=== PATIENT | male | born 1990 | race Caucasian/White ===

== ENCOUNTER 2017-10-25 10:23 | Emergency (ER) | payer OTHER ==
[~2017-10-25] VITALS: Wt 61.2 kg
[~2017-10-25 10:23] MED LIST: FLEXERIL10 MG PO; FLUOXETINE HYDR20 M1 PO; HYDROXYZINE PAM50 MG PO; IBU-8800 MG PO; MEDROL DOSEPAK4 MG PO; MIRTAZAPINE15 M2 PO; NORCO 5-325 TA1 EACH PO; PENICILLIN-VK500 MG PO; QUETIAPINE FUM100 M3 PO; REXULTI2 MG PO; ULTRAM50 MG PO; VICODIN 5/500 505 MG PO; ZITHROMAX250 MG PO; ZOFRAN ODT4 MG SL
[2017-10-25 10:40] VITALS: BP 109/72
[2017-10-25] MEDS ORDERED: FLONASE ALLERG9.9 ML NAS (11:10)
[2017-10-25] MEDS ORDERED: AMOXICILLIN500 M2 PO (11:10)
== END 2017-10-25 11:08 | disposition home or self-care (01) ==
LOC: ED 10:23
DX: J01.10 Acute frontal sinusitis, unspecified (principal); H92.03 Otalgia, bilateral; J02.9 Acute pharyngitis, unspecified; R05 Cough; F17.200 Nicotine dependence, unspecified, uncomplicated

== ENCOUNTER 2017-12-24 12:23 | Emergency (ER) | payer OTHER ==
[~2017-12-24] VITALS: Wt 63.5 kg
[~2017-12-24 12:23] MED LIST changes: +AMOXICILLIN500 M2 PO; +FLONASE ALLERG9.9 ML NAS
[2017-12-24 12:43] LABS: BASO # 0.2 10*3/uL (0.0-0.1); EOS # 0.1 10*3/uL (0.0-0.4); EOS % 0.9 % (1.0-4.0); HEMATOCRIT 49.1 % (42.0-52.0); HEMOGLOBIN 16.4 g/dl (14.0-18.0); LYMPH # 4.2 10*3/uL (1.3-4.4); LYMPH % 27.3 % (27.0-41.0); MEAN CELL VOLUME 90.1 fl (80.0-94.0); MEAN CORPUSCULAR HGB 30.1 pg (27.0-31.0); MEAN CORPUSCULAR HGB CONC 33.4 g/dl (33.0-37.0); MEAN PLATELET VOLUME 10.3 fl (9.6-12.3); MONO % 6.4 % (3.0-9.0); NEUT # 9.7 10*3/uL (2.3-7.9); NEUT % 63.8 % (47.0-73.0); PLATELET COUNT AUTOMATED 237 10*3/uL (130-400); RED BLOOD COUNT 5.45 10*6/uL (4.50-5.90); RED CELL DISTRI WIDTH 13.4 % (0-14.5); WHITE BLOOD COUNT 15.2 10*3/uL (4.8-10.8)
[2017-12-24 13:00] LABS: ALBUMIN 5.1 gm/dl (3.1-4.5); ALKALINE PHOSPHATASE 76 U/L (45-117); BUN 14 mg/dl (7-24); CHLORIDE 103 mmol/L (98-107); POTASSIUM 3.4 mmol/L (3.5-5.1); SGOT/AST 26 IU/L (3-35); SGPT/ALT 35 U/L (12-78); SODIUM 142 mmol/L (136-145)
[2017-12-24] MEDS ORDERED: ZOFRAN ODT4 MG SL (15:09)
[2017-12-24 15:17] VITALS: BP 110/66
== END 2017-12-24 15:20 | disposition home or self-care (01) ==
LOC: ED 12:23
PROVIDERS: Nurse Practitioner Family
DX: K29.70 Gastritis, unspecified, without bleeding (principal); Z79.899 Other long term (current) drug therapy

== ENCOUNTER 2019-08-31 13:57 | Emergency (ER) | payer SELFPAY ==
[~2019-08-31] VITALS: Wt 65.8 kg
[~2019-08-31 13:57] MED LIST changes: +CLINDAMYCIN HC300 MG PO
[2019-08-31 13:58] VITALS: BP 120/75
[2019-08-31] MEDS ORDERED: PENICILLIN VK500 MG PO (15:50)
== END 2019-08-31 15:45 | disposition home or self-care (01) ==
LOC: ED 13:57
DX: S02.5XXA Fracture of tooth (traumatic), initial encounter for closed fracture (principal); B34.9 Viral infection, unspecified; K02.9 Dental caries, unspecified; R11.2 Nausea with vomiting, unspecified; X58.XXXA Exposure to other specified factors, initial encounter; Y93.89 Activity, other specified; Y92.89 Other specified places as the place of occurrence of the external cause; Y99.8 Other external cause status

== ENCOUNTER 2020-02-26 08:03 | Emergency (ER) | payer MEDICAID ==
[~2020-02-26] VITALS: Ht 182.8 cm; Wt 65.8 kg
[~2020-02-26 08:03] MED LIST changes: +PENICILLIN VK500 MG PO
[2020-02-26 08:08] VITALS: BP 124/73
[2020-02-26] MEDS ORDERED: AMOXICILLIN500 M2 PO (08:24)
[2020-02-26] MEDS ORDERED: VICO10300 PO (08:27)
== END 2020-02-26 08:36 | disposition home or self-care (01) ==
LOC: ED 08:03
DX: K02.9 Dental caries, unspecified (principal); F17.200 Nicotine dependence, unspecified, uncomplicated; Z79.899 Other long term (current) drug therapy

== ENCOUNTER 2020-03-30 17:37 | Emergency (ER) | payer OTHER, MEDICAID ==
[~2020-03-30] VITALS: Ht 182.8 cm; Wt 64.4 kg
[~2020-03-30 17:37] MED LIST changes: +VICO10300 PO
[2020-03-30 17:48] VITALS: BP 115/75
--- NOTE | 2020-04-02 15:26 | NUR ---
Notified patient of negative test results, novel coronavirus. Understanding verbalized. Did not seek written documentation at this time for employment. Patient to call back if employer requests.
--- NOTE | 2020-04-02 15:33 | NUR ---
Patient called back with letter request, faxed as requested by patient.
== END 2020-03-30 18:42 | disposition home or self-care (01) ==
LOC: ED 17:37
DX: B34.9 Viral infection, unspecified (principal); R68.89 Other general symptoms and signs; F17.200 Nicotine dependence, unspecified, uncomplicated; Z79.899 Other long term (current) drug therapy

== ENCOUNTER 2020-09-03 15:09 | Emergency (ER) | payer OTHER ==
[~2020-09-03] VITALS: Ht 182.8 cm; Wt 65.8 kg
[2020-09-03 15:24] VITALS: BP 105/68
[2020-09-03] MEDS ORDERED: ZOFRAN4 MG PO (15:35)
[2020-09-03] MEDS ORDERED: TESSALON PERLE100 MG PO (15:35)
== END 2020-09-03 15:54 | disposition home or self-care (01) ==
LOC: ED 15:09
DX: J06.9 Acute upper respiratory infection, unspecified (principal); Z20.828 Contact with and (suspected) exposure to other viral communicable diseases

== ENCOUNTER 2020-12-08 08:19 | Emergency (ER) | payer OTHER ==
[~2020-12-08] VITALS: Wt 65.8 kg
[~2020-12-08 08:19] MED LIST changes: +TESSALON PERLE100 MG PO; +ZOFRAN4 MG PO
[2020-12-08 08:29] VITALS: BP 117/65
[2020-12-08] MEDS ORDERED: ZOFRAN4 MG PO (09:23)
[2020-12-08] MEDS ORDERED: TESSALON PERLE100 MG PO (09:23)
== END 2020-12-08 09:38 | disposition home or self-care (01) ==
LOC: ED 08:19
DX: J06.9 Acute upper respiratory infection, unspecified (principal); R11.10 Vomiting, unspecified; R05 Cough; F17.200 Nicotine dependence, unspecified, uncomplicated; Z20.822 Contact with and (suspected) exposure to COVID-19

== ENCOUNTER 2021-01-01 16:08 | Inpatient (IN) | payer OTHER ==
[~2021-01-01] VITALS: Ht 182.8 cm; Wt 65.8 kg
[2021-01-01 17:04] VITALS: BP 124/87
[2021-01-01 18:02] LABS: BILIRUBIN Negative (Negative); BLOOD Negative (Negative); CLARITY Clear (Clear); COLOR Yellow (Yellow); GLUCOSE Negative (Negative); KETONE Trace (Negative); LEUKO ESTERASE Negative (Negative); NITRITE Negative (Negative); SPECIFIC GRAVITY 1.025 (1.001-1.030)
[2021-01-01 18:11] LABS: URINE AMPHETAMINES < 1000 (1000ng/ml); URINE BARBITURATES < 200 (200ng/ml); URINE BENZODIAZEPINES < 200 (200ng/ml); URINE CANNABINOIDS (THC) > 50 (50ng/ml); URINE COCAINE < 300 (300ng/ml); URINE METHADONE < 300 (300ng/ml); URINE OPIATES < 300 (300ng/ml)
[2021-01-01 18:15] LABS: BACTERIA 1+; EPITHELIAL CELLS 0-2; MUCOUS 1+; RBC 0-2 rbc/hpf (0-2); TRIP PHOS CRYSTALS TR
[2021-01-01 18:17] LABS: URINE PHENCYCLIDINE < 25 (25ng/ml)
[2021-01-01 18:47] LABS: BASO # 0.1 10*3/uL (0.0-0.1); EOS # 0.4 10*3/uL (0.0-0.4); EOS % 4.1 % (1.0-4.0); HEMATOCRIT 39.8 % (42.0-52.0); LYMPH # 2.3 10*3/uL (1.3-4.4); LYMPH % 22.3 % (27.0-41.0); MEAN CELL VOLUME 82.1 fl (80.0-94.0); MEAN CORPUSCULAR HGB 25.6 pg (27.0-31.0); MEAN CORPUSCULAR HGB CONC 31.2 g/dl (33.0-37.0); MEAN PLATELET VOLUME 10.1 fl (9.6-12.3); MONO # 0.8 10*3/uL (0.1-1.0); MONO % 7.5 % (3.0-9.0); NEUT # 6.7 10*3/uL (2.3-7.9); NEUT % 64.9 % (47.0-73.0); PLATELET COUNT AUTOMATED 270 10*3/uL (130-400); RED BLOOD COUNT 4.85 10*6/uL (4.50-5.90); RED CELL DISTRI WIDTH 17.1 % (0-14.5); WHITE BLOOD COUNT 10.4 10*3/uL (4.8-10.8)
[2021-01-01 18:54] VITALS: BP 128/80
[2021-01-01 19:01] LABS: ALBUMIN 3.6 gm/dl (3.1-4.5); ALKALINE PHOSPHATASE 91 U/L (45-117); BUN 10 mg/dl (7-24); CHLORIDE 106 mmol/L (98-107); CREATININE 0.79 mg/dL (0.70-1.30); POTASSIUM 3.6 mmol/L (3.5-5.1); SGOT/AST 12 IU/L (3-35); SGPT/ALT 19 U/L (12-78); SODIUM 140 mmol/L (136-145); TOTAL PROTEIN 6.8 gm/dL (6.4-8.2)
[2021-01-01 19:03] LABS: ETHYL ALCOHOL < 3.0 mg/dl (<3)
[2021-01-01 20:45] VITALS: BP 135/80
[2021-01-02 08:00] VITALS: BP 121/84
[2021-01-02 12:00] VITALS: BP 115/73
[2021-01-02 16:00] VITALS: BP 121/75
[2021-01-02 20:00] VITALS: BP 104/74
[2021-01-03] VITALS: BP 116/68
[2021-01-03 08:00] VITALS: BP 111/66
[2021-01-03 16:00] VITALS: BP 121/78
[2021-01-03 20:00] VITALS: BP 120/75
[2021-01-04 08:05] VITALS: BP 110/72
== END 2021-01-04 11:58 | disposition home or self-care (01) | DRG 897 ==
LOC: ED 16:08 → 5E 18:00 → EDHOLD 18:00 → 5E 19:34
PROVIDERS: Physician Assistant; Student in an Organized Health Care Education/Training Program; ADMIT Emergency Medicine; ATTEND Emergency Medicine
DX: F11.13 Opioid abuse with withdrawal (principal); F33.1 Major depressive disorder, recurrent, moderate; F12.10 Cannabis abuse, uncomplicated; F17.210 Nicotine dependence, cigarettes, uncomplicated

== ENCOUNTER 2021-01-06 23:59 | Emergency (ER) | payer OTHER ==
[~2021-01-06] VITALS: Ht 182.8 cm; Wt 65.8 kg
[2021-01-07 02:45] VITALS: BP 116/70
== END 2021-01-07 03:07 | disposition home or self-care (01) ==
LOC: ED 23:59
DX: I95.1 Orthostatic hypotension (principal); Z98.890 Other specified postprocedural states

== ENCOUNTER 2021-01-21 00:10 | Emergency (ER) | payer OTHER ==
[~2021-01-21] VITALS: Ht 182.8 cm; Wt 68.0 kg
[2021-01-21 00:16] VITALS: BP 118/75
[2021-01-21] MEDS ORDERED: PENICILLIN VK500 MG PO (00:25)
== END 2021-01-21 00:35 | disposition home or self-care (01) ==
LOC: ED 00:10
DX: K08.89 Other specified disorders of teeth and supporting structures (principal); F17.200 Nicotine dependence, unspecified, uncomplicated

== ENCOUNTER 2021-03-15 23:04 | Emergency (ER) | payer OTHER ==
[~2021-03-15] VITALS: Ht 182.8 cm; Wt 69.4 kg
[2021-03-15 23:12] VITALS: BP 154/47
[2021-03-15] MEDS ORDERED: AMOXICILLIN500 M2 PO ×2 (23:17)
== END 2021-03-15 23:37 | disposition home or self-care (01) ==
LOC: ED 23:04
DX: K08.89 Other specified disorders of teeth and supporting structures (principal); F17.200 Nicotine dependence, unspecified, uncomplicated; Z79.2 Long term (current) use of antibiotics; Z98.890 Other specified postprocedural states

== ENCOUNTER 2021-03-31 22:12 | Emergency (ER) | payer OTHER ==
[~2021-03-31] VITALS: Ht 182.8 cm; Wt 63.5 kg
[2021-03-31 22:24] VITALS: BP 123/73
[2021-03-31 23:02] LABS: BASO # 0.1 10*3/uL (0.0-0.1); BASO % 0.6 % (0.0-1.0); EOS # 0.2 10*3/uL (0.0-0.4); EOS % 2.4 % (1.0-4.0); HEMATOCRIT 37.6 % (42.0-52.0); LYMPH # 2.7 10*3/uL (1.3-4.4); LYMPH % 31.5 % (27.0-41.0); MEAN CELL VOLUME 82.8 fl (80.0-94.0); MEAN CORPUSCULAR HGB 26.7 pg (27.0-31.0); MEAN CORPUSCULAR HGB CONC 32.2 g/dl (33.0-37.0); MEAN PLATELET VOLUME 10.5 fl (9.6-12.3); MONO # 0.8 10*3/uL (0.1-1.0); MONO % 9.2 % (3.0-9.0); NEUT # 4.8 10*3/uL (2.3-7.9); NEUT % 56.2 % (47.0-73.0); PLATELET COUNT AUTOMATED 223 10*3/uL (130-400); RED BLOOD COUNT 4.54 10*6/uL (4.50-5.90); RED CELL DISTRI WIDTH 17.1 % (0-14.5); WHITE BLOOD COUNT 8.6 10*3/uL (4.8-10.8)
[2021-03-31 23:18] LABS: ALKALINE PHOSPHATASE 73 U/L (45-117); BUN 14 mg/dl (7-24); CHLORIDE 101 mmol/L (98-107); CREATININE 0.84 mg/dL (0.70-1.30); LIPASE 41 U/L (73-393); SGOT/AST 24 IU/L (3-35); SGPT/ALT 21 U/L (12-78); SODIUM 136 mmol/L (136-145); TOTAL PROTEIN 6.9 gm/dL (6.4-8.2)
[2021-03-31] MEDS ORDERED: KLOR-CON M2020 ME1 PO (23:56)
[2021-03-31] MEDS ORDERED: ZOFRAN4 MG PO (23:56)
== END 2021-04-01 00:17 | disposition home or self-care (01) ==
LOC: ED 22:12
PROVIDERS: Physician Assistant
DX: K52.9 Noninfective gastroenteritis and colitis, unspecified (principal); E87.6 Hypokalemia; R11.2 Nausea with vomiting, unspecified; F17.200 Nicotine dependence, unspecified, uncomplicated; Z98.890 Other specified postprocedural states

== ENCOUNTER 2021-09-04 15:48 | Emergency (ER) | payer OTHER ==
[~2021-09-04 15:48] MED LIST changes: +KLOR-CON M2020 ME1 PO
[2021-09-04 15:57] VITALS: BP 127/80
[2021-09-04 16:23] LABS: BASO % 0.1 % (0.0-1.0); HEMATOCRIT 44.3 % (42.0-52.0); LYMPH # 1.1 10*3/uL (1.3-4.4); LYMPH % 12.4 % (27.0-41.0); MEAN CELL VOLUME 82.3 fl (80.0-94.0); MEAN CORPUSCULAR HGB 28.8 pg (27.0-31.0); MEAN PLATELET VOLUME 10.3 fl (9.6-12.3); MONO # 0.6 10*3/uL (0.1-1.0); MONO % 6.3 % (3.0-9.0); NEUT # 7.1 10*3/uL (2.3-7.9); PLATELET COUNT AUTOMATED 223 10*3/uL (130-400); RED BLOOD COUNT 5.38 10*6/uL (4.50-5.90); RED CELL DISTRI WIDTH 14.7 % (0-14.5); WHITE BLOOD COUNT 8.8 10*3/uL (4.8-10.8)
[2021-09-04 16:38] LABS: ALBUMIN 4.5 gm/dl (3.1-4.5); ALKALINE PHOSPHATASE 89 U/L (45-117); BUN 13 mg/dl (7-24); CHLORIDE 97 mmol/L (98-107); LIPASE 31 U/L (73-393); POTASSIUM 3.3 mmol/L (3.5-5.1); SGOT/AST 16 IU/L (3-35); SGPT/ALT 23 U/L (12-78); SODIUM 133 mmol/L (136-145)
== END 2021-09-04 19:56 | disposition left against medical advice (07) ==
LOC: ED 15:48
PROVIDERS: Physician Assistant
DX: R10.84 Generalized abdominal pain (principal); Z20.822 Contact with and (suspected) exposure to COVID-19; R09.81 Nasal congestion; R11.10 Vomiting, unspecified; F17.200 Nicotine dependence, unspecified, uncomplicated; Z53.29 Procedure and treatment not carried out because of patient's decision for other reasons; Z79.899 Other long term (current) drug therapy; Z98.890 Other specified postprocedural states

== ENCOUNTER 2022-05-23 16:09 | Emergency (ER) | payer OTHER ==
[~2022-05-23] VITALS: Ht 182.8 cm; Wt 65.8 kg
[2022-05-23 16:35] VITALS: BP 106/67
[2022-05-23] MEDS ORDERED: Motrin,Rufen800 MG PO (16:56)
[2022-05-23] MEDS ORDERED: AMOXICILLIN500 M2 PO (16:56)
== END 2022-05-23 17:07 | disposition home or self-care (01) ==
LOC: ED 16:09
DX: K08.89 Other specified disorders of teeth and supporting structures (principal)

== ENCOUNTER 2022-08-10 09:20 | Inpatient (IN) | payer OTHER ==
[~2022-08-10] VITALS: Ht 182.8 cm; Wt 63.5 kg
[~2022-08-10 09:20] MED LIST changes: +Motrin,Rufen800 MG PO
[2022-08-10 09:26] VITALS: BP 107/70
[2022-08-10 10:15] LABS: BASO # 0.1 10*3/uL (0.0-0.1); BASO % 0.4 % (0.0-1.0); EOS # 0.3 10*3/uL (0.0-0.4); EOS % 1.8 % (1.0-4.0); HEMATOCRIT 41.3 % (42.0-52.0); LYMPH # 3.1 10*3/uL (1.3-4.4); LYMPH % 18.7 % (27.0-41.0); MEAN CELL VOLUME 90.2 fl (80.0-94.0); MEAN CORPUSCULAR HGB 31.7 pg (27.0-31.0); MEAN CORPUSCULAR HGB CONC 35.1 g/dl (33.0-37.0); MEAN PLATELET VOLUME 9.9 fl (9.6-12.3); MONO # 1.3 10*3/uL (0.1-1.0); MONO % 7.4 % (3.0-9.0); NEUT % 71.3 % (47.0-73.0); PLATELET COUNT AUTOMATED 230 10*3/uL (130-400); RED BLOOD COUNT 4.58 10*6/uL (4.50-5.90); RED CELL DISTRI WIDTH 14.3 % (0-14.5); WHITE BLOOD COUNT 16.8 10*3/uL (4.8-10.8)
[2022-08-10 10:35] LABS: ALKALINE PHOSPHATASE 67 U/L (46-116); BUN 7 mg/dl (9-23); CHLORIDE 103 mmol/L (98-107); CPK 63 U/L (34-171); CREATININE 0.92 mg/dL (0.70-1.30); POTASSIUM 3.1 mmol/L (3.4-5.1); SGPT/ALT 14 U/L (10-49); SODIUM 140 mmol/L (136-145); THYROID STIM HORMONE (HS) 0.489 uIU/ml (0.550-4.780); TOTAL PROTEIN 6.4 gm/dL (6.0-8.0)
[2022-08-10 10:51] LABS: ETHYL ALCOHOL < 3.0 mg/dl (<3)
[2022-08-10 13:24] LABS: BILIRUBIN Negative (Negative); BLOOD Negative (Negative); CLARITY Clear (Clear); COLOR Dark Yellow (Yellow); GLUCOSE Negative (Negative); KETONE Trace (Negative); LEUKO ESTERASE Negative (Negative); NITRITE Negative (Negative); SPECIFIC GRAVITY 1.025 (1.001-1.030)
[2022-08-10 13:31] LABS: URINE AMPHETAMINES Negative (1000ng/ml); URINE BARBITURATES Negative (200ng/ml); URINE BENZODIAZEPINES Negative (200ng/ml); URINE CANNABINOIDS (THC) Positive (50ng/ml); URINE COCAINE Negative (300ng/ml); URINE METHADONE Negative (300ng/ml); URINE OPIATES Negative (300ng/ml); URINE PHENCYCLIDINE Negative (25ng/ml)
[2022-08-10 13:43] LABS: BACTERIA TRACE; CALCIUM OXALATE CRYSTALS 2+; EPITHELIAL CELLS 0-2; MUCOUS 2+; RBC 0-2 rbc/hpf (0-2)
[2022-08-11 07:15] LABS: BASO # 0.1 10*3/uL (0.0-0.1); BASO % 0.8 % (0.0-1.0); EOS # 0.3 10*3/uL (0.0-0.4); EOS % 3.2 % (1.0-4.0); HEMATOCRIT 45.9 % (42.0-52.0); LYMPH # 3.6 10*3/uL (1.3-4.4); LYMPH % 36.1 % (27.0-41.0); MEAN CELL VOLUME 91.3 fl (80.0-94.0); MEAN CORPUSCULAR HGB 30.8 pg (27.0-31.0); MEAN CORPUSCULAR HGB CONC 33.8 g/dl (33.0-37.0); MEAN PLATELET VOLUME 9.9 fl (9.6-12.3); MONO # 0.9 10*3/uL (0.1-1.0); MONO % 8.7 % (3.0-9.0); NEUT % 50.7 % (47.0-73.0); PLATELET COUNT AUTOMATED 215 10*3/uL (130-400); RED BLOOD COUNT 5.03 10*6/uL (4.50-5.90); RED CELL DISTRI WIDTH 14.6 % (0-14.5); WHITE BLOOD COUNT 9.9 10*3/uL (4.8-10.8)
[2022-08-11 07:37] LABS: ALKALINE PHOSPHATASE 79 U/L (46-116); BUN 11 mg/dl (9-23); CHLORIDE 102 mmol/L (98-107); CHOLESTEROL 156 mg/dL (<200); CREATININE 0.87 mg/dL (0.70-1.30); FREE T4 0.95 ng/dl (0.89-1.76); LDL CHOLESTEROL 75 mg/dL (9-159); SGPT/ALT 16 U/L (10-49); SODIUM 139 mmol/L (136-145); TOTAL PROTEIN 6.9 gm/dL (6.0-8.0); TRIGLYCERIDES 83 mg/dl (<150)
[2022-08-11 08:00] VITALS: BP 110/70
[2022-08-11 10:45] VITALS: BP 113/76
[2022-08-11 16:00] VITALS: BP 126/67
[2022-08-11 20:00] VITALS: BP 123/88
[2022-08-12] VITALS: BP 121/76
[2022-08-12 06:59] LABS: BASO # 0.1 10*3/uL (0.0-0.1); BASO % 0.6 % (0.0-1.0); EOS # 0.3 10*3/uL (0.0-0.4); EOS % 2.5 % (1.0-4.0); HEMATOCRIT 50.2 % (42.0-52.0); LYMPH # 3.6 10*3/uL (1.3-4.4); LYMPH % 31.7 % (27.0-41.0); MEAN CELL VOLUME 91.8 fl (80.0-94.0); MEAN CORPUSCULAR HGB 30.2 pg (27.0-31.0); MEAN CORPUSCULAR HGB CONC 32.9 g/dl (33.0-37.0); MEAN PLATELET VOLUME 10.1 fl (9.6-12.3); MONO # 0.8 10*3/uL (0.1-1.0); MONO % 7.4 % (3.0-9.0); NEUT # 6.4 10*3/uL (2.3-7.9); NEUT % 57.4 % (47.0-73.0); PLATELET COUNT AUTOMATED 251 10*3/uL (130-400); RED BLOOD COUNT 5.47 10*6/uL (4.50-5.90); RED CELL DISTRI WIDTH 14.6 % (0-14.5); WHITE BLOOD COUNT 11.2 10*3/uL (4.8-10.8)
[2022-08-12 07:15] LABS: BUN 11 mg/dl (9-23); CHLORIDE 100 mmol/L (98-107); CREATININE 0.95 mg/dL (0.70-1.30); SODIUM 138 mmol/L (136-145)
[2022-08-12 08:00] VITALS: BP 112/82
[2022-08-12 12:00] VITALS: BP 111/69
[2022-08-12 16:00] VITALS: BP 107/72
[2022-08-12 20:00] VITALS: BP 128/92
[2022-08-13] VITALS: BP 119/78
[2022-08-13 08:00] VITALS: BP 111/91
[2022-08-13 12:00] VITALS: BP 115/85
[2022-08-13] MEDS ORDERED: DIPHENHYDRAMINE25 M3 PO (12:11)
[2022-08-13] MEDS ORDERED: ATARAX,VISTARIL50 MG PO (12:11)
== END 2022-08-13 12:58 | disposition home or self-care (01) | DRG 773 ==
LOC: ED 09:20 → EDHOLD 14:26 → 4E 14:26 → EDHOLD 14:43 → 4E 08-11 09:16
PROVIDERS: Family Medicine; Student in an Organized Health Care Education/Training Program; ADMIT Family Medicine; ATTEND Family Medicine
DX: F11.23 Opioid dependence with withdrawal (principal); F12.10 Cannabis abuse, uncomplicated; F32.A Depression, unspecified; F41.9 Anxiety disorder, unspecified; F17.210 Nicotine dependence, cigarettes, uncomplicated; D72.829 Elevated white blood cell count, unspecified; E87.6 Hypokalemia; Z71.6 Tobacco abuse counseling

== ENCOUNTER 2023-09-22 17:53 | Emergency (ER) | payer OTHER ==
[~2023-09-22] VITALS: Ht 182.8 cm; Wt 63.5 kg
[~2023-09-22 17:53] MED LIST changes: +ATARAX,VISTARIL50 MG PO; +DIPHENHYDRAMINE25 M3 PO
[2023-09-22] MEDS ORDERED: PREDNISONE50 MG PO (22:54)
[2023-09-22] MEDS ORDERED: CYCLOBENZAPRINE10 MG PO (22:54)
== END 2023-09-22 23:00 | disposition home or self-care (01) ==
LOC: ED 17:53
DX: M62.838 Other muscle spasm (principal); M54.2 Cervicalgia; M25.512 Pain in left shoulder; F17.200 Nicotine dependence, unspecified, uncomplicated; X50.0XXA Overexertion from strenuous movement or load, initial encounter; Y93.89 Activity, other specified; Y92.89 Other specified places as the place of occurrence of the external cause; Y99.8 Other external cause status

== ENCOUNTER 2023-10-27 10:46 | Emergency (ER) | payer OTHER ==
[~2023-10-27] VITALS: Ht 182.8 cm; Wt 65.8 kg
[~2023-10-27 10:46] MED LIST changes: +CYCLOBENZAPRINE10 MG PO; +PREDNISONE50 MG PO
[2023-10-27 11:07] VITALS: BP 133/101
[2023-10-27] MEDS ORDERED: SUBOXONE 8 MG-1 EACH PO (11:08)
[2023-10-27] MEDS ORDERED: IBUPROFEN 800 MG TAB PO ONE (11:15)
== END 2023-10-27 12:31 | disposition left against medical advice (07) ==
LOC: ED 10:46
DX: S00.31XA Abrasion of nose, initial encounter (principal); M25.521 Pain in right elbow; M79.631 Pain in right forearm; M25.511 Pain in right shoulder; Z98.890 Other specified postprocedural states; F17.200 Nicotine dependence, unspecified, uncomplicated; F12.90 Cannabis use, unspecified, uncomplicated; F11.90 Opioid use, unspecified, uncomplicated; W22.8XXA Striking against or struck by other objects, initial encounter; Y93.89 Activity, other specified; Y92.89 Other specified places as the place of occurrence of the external cause; Y99.8 Other external cause status

== ENCOUNTER 2024-01-03 15:50 | Emergency (ER) | payer OTHER ==
[~2024-01-03] VITALS: Wt 68.0 kg
[~2024-01-03 15:50] MED LIST changes: +SUBOXONE 8 MG-1 EACH PO
[2024-01-03 16:10] VITALS: BP 118/82
[2024-01-03] MEDS ORDERED: Metoclopramide Hydrochloride 10 MG/2 ML AMP IV ONE (16:30)
[2024-01-03] MEDS ORDERED: diphenhydrAMINE hydrochloride 50 MG/ML VIAL IV ONE (16:30)
[2024-01-03] MEDS ORDERED: FAMOTIDINE 20 MG TAB PO ONE (16:30)
[2024-01-03] MEDS ORDERED: SODIUM CHLORIDE 0.9% 1,000 ML IV ONE (16:30)
[2024-01-03 16:43] LABS: BASO # 0.1 10*3/uL (0.0-0.1); BASO % 0.8 % (0.0-1.0); EOS % 0.1 % (1.0-4.0); HEMATOCRIT 49.7 % (42.0-52.0); LYMPH # 1.5 10*3/uL (1.3-4.4); LYMPH % 14.3 % (27.0-41.0); MEAN CELL VOLUME 90.9 fl (80.0-94.0); MEAN CORPUSCULAR HGB 30.7 pg (27.0-31.0); MEAN CORPUSCULAR HGB CONC 33.8 g/dl (33.0-37.0); MEAN PLATELET VOLUME 10.6 fl (9.6-12.3); MONO # 0.7 10*3/uL (0.1-1.0); NEUT # 7.9 10*3/uL (2.3-7.9); NEUT % 77.6 % (47.0-73.0); PLATELET COUNT AUTOMATED 246 10*3/uL (130-400); RED BLOOD COUNT 5.47 10*6/uL (4.50-5.90); RED CELL DISTRI WIDTH 13.5 % (0-14.5); WHITE BLOOD COUNT 10.2 10*3/uL (4.8-10.8)
[2024-01-03 16:54] LABS: ACT PARTIAL THROMBO TIME 29.1 SECONDS (20.0-32.1)
[2024-01-03 16:59] LABS: ALKALINE PHOSPHATASE 79 U/L (46-116); BUN 13 mg/dl (9-23); CHLORIDE 100 mmol/L (98-107); ETHYL ALCOHOL < 3.0 mg/dl (<3); LIPASE 36 U/L (12-53); POTASSIUM 3.3 mmol/L (3.4-5.1); SGPT/ALT < 7 U/L (5-49); TOTAL PROTEIN 7.8 gm/dL (6.0-8.0)
[2024-01-03] MEDS ORDERED: IOHEXOL 300 MG/ML 100 ML VIAL IV ONE (17:00)
[2024-01-03] MEDS ORDERED: IOHEXOL 300 MG/ML 100 ML VIAL ONE (17:19)
[2024-01-03] MEDS ORDERED: POTASSIUM CHLORIDE 20 MEQ TAB PO ONE (18:05)
[2024-01-03] MEDS ORDERED: Ketorolac Tromethamine 30 MG/ML VIAL IV ONE (20:55)
[2024-01-03 21:03] LABS: BILIRUBIN Negative (Negative); BLOOD Negative (Negative); CLARITY Clear (Clear); COLOR Yellow (Yellow); GLUCOSE Negative (Negative); KETONE 4+ (Negative); LEUKO ESTERASE Negative (Negative); NITRITE Negative (Negative); SPECIFIC GRAVITY >= 1.030 (1.001-1.030)
[2024-01-03 21:09] LABS: FINE GRANULAR CAST 0-2; MUCOUS 1+; RBC 0-2 rbc/hpf (0-2); WBC 0-2 wbc/hpf (0-5)
[2024-01-03 21:10] LABS: URINE AMPHETAMINES Negative (1000ng/ml); URINE BARBITURATES Negative (200ng/ml); URINE BENZODIAZEPINES Negative (200ng/ml); URINE CANNABINOIDS (THC) Positive (50ng/ml); URINE COCAINE Negative (300ng/ml); URINE METHADONE Negative (300ng/ml); URINE OPIATES Negative (300ng/ml); URINE PHENCYCLIDINE Negative (25ng/ml)
== END 2024-01-03 22:11 | disposition left against medical advice (07) ==
LOC: ED 15:50
PROVIDERS: Nurse Practitioner
DX: R10.84 Generalized abdominal pain (principal); R11.2 Nausea with vomiting, unspecified; R55 Syncope and collapse; F17.210 Nicotine dependence, cigarettes, uncomplicated; Z79.899 Other long term (current) drug therapy; Z98.890 Other specified postprocedural states

== ENCOUNTER 2024-01-08 13:51 | Emergency (ER) | payer OTHER ==
[~2024-01-08] VITALS: Ht 182.8 cm; Wt 63.5 kg
[2024-01-08 14:12] VITALS: BP 122/92
[2024-01-08] MEDS ORDERED: diphenhydrAMINE hydrochloride 50 MG/ML VIAL IV ONE (14:25)
[2024-01-08] MEDS ORDERED: Ketorolac Tromethamine 30 MG/ML VIAL IV ONE (14:25)
[2024-01-08] MEDS ORDERED: Metoclopramide Hydrochloride 10 MG/2 ML AMP IV ONE (14:25)
[2024-01-08] MEDS ORDERED: SODIUM CHLORIDE 0.9% 1,000 ML IV ONE (14:25)
[2024-01-08 14:46] LABS: BASO # 0.1 10*3/uL (0.0-0.1); BASO % 0.6 % (0.0-1.0); EOS # 0.1 10*3/uL (0.0-0.4); EOS % 0.4 % (1.0-4.0); LYMPH % 15.5 % (27.0-41.0); MEAN CELL VOLUME 89.4 fl (80.0-94.0); MEAN CORPUSCULAR HGB 31.2 pg (27.0-31.0); MEAN CORPUSCULAR HGB CONC 34.9 g/dl (33.0-37.0); MONO # 1.5 10*3/uL (0.1-1.0); MONO % 7.6 % (3.0-9.0); NEUT # 14.5 10*3/uL (2.3-7.9); NEUT % 75.3 % (47.0-73.0); PLATELET COUNT AUTOMATED 313 10*3/uL (130-400); RED BLOOD COUNT 6.15 10*6/uL (4.50-5.90); RED CELL DISTRI WIDTH 13.5 % (0-14.5); WHITE BLOOD COUNT 19.3 10*3/uL (4.8-10.8)
[2024-01-08 15:14] LABS: ALKALINE PHOSPHATASE 87 U/L (46-116); BUN 18 mg/dl (9-23); CHLORIDE 101 mmol/L (98-107); LIPASE 36 U/L (12-53); POTASSIUM 3.1 mmol/L (3.4-5.1); SGPT/ALT 8 U/L (5-49); TOTAL PROTEIN 8.8 gm/dL (6.0-8.0)
[2024-01-08] MEDS ORDERED: POTASSIUM CHLORIDE 20 MEQ TAB PO ONE (15:35)
== END 2024-01-08 17:18 | disposition home or self-care (01) ==
LOC: ED 13:51
PROVIDERS: Physician Assistant Medical
DX: R11.2 Nausea with vomiting, unspecified (principal); M54.9 Dorsalgia, unspecified; F41.9 Anxiety disorder, unspecified; F32.A Depression, unspecified; F12.10 Cannabis abuse, uncomplicated; Z98.890 Other specified postprocedural states; F17.200 Nicotine dependence, unspecified, uncomplicated; F11.90 Opioid use, unspecified, uncomplicated